=== PATIENT | female | born 2005 | race Caucasian/White ===

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

== ENCOUNTER 2025-01-19 11:15 | Outpatient (RCR) | payer OTHER, SELFPAY | END 2025-03-01 17:25 | disposition home or self-care (01) | PROVIDERS: PCP Family Medicine; Visit Provider Family Medicine | DX: M54.16 Radiculopathy, lumbar region (principal); Z51.89 Encounter for other specified aftercare | CPT/HCPCS: 97032; 97110; 97162 ==

== ENCOUNTER 2025-03-29 17:16 | Emergency (ER) | payer OTHER, SELFPAY ==
--- OUTSIDE RECORDS SUMMARY | 2025-03-29 17:18 | XMS_ITS | Clinical Summary ---
Author Organization [facility] Address [address] [place] [id number] Care Team Providers Care Cable Tool Driller Name Role Phone Elsewhere, Pcp Primary Care Provider Unavailabl e Source Comments Patient records contain information from all sites at [facility]. For routine questions regarding patient records, call [phone] during business hours, M-F 8:00 AM - 5:00 PM Central Time. Record requests for emergency care only can be directed to [phone] at any time.[facility] Allergies No known active allergies Medications No known medications Active Problems No known active problems Social History Tobacco Use Types Packs/Day Years Used Date Smoking Tobacco: Never Passive Smoke Exposure: Never Smokeless Tobacco: Never Tobacco Cessation:Counseling Given: Not Answered Alcohol Use Standard Drinks/Week Comments Not Currently 0 (1 standard drink = 0.6 oz pur e alcohol) Comments No Sex and Gender Information Value Date Recorded Sex Assigned at Not on file Legal Sex Female 2:13 PM CDT Gender Identity Not on file Sexual Orientation Not on file Last Filed Vital Signs Vital Sign Reading Time Taken Comments Blood Pressure 101/63 10/10/2024 2:27 PM CDT Pulse 125 10/10/2024 2:23 PM CDT Temperature 37.6 C (99.7 F) 10/10/2024 4:08 PM CDT Respiratory Rate 18 10/10/2024 4:08 PM CDT Oxygen Saturation 100% 10/10/2024 4:08 PM CDT Inhaled Oxygen Concentration - - Weight 57.6 kg (127 lb) 10/10/2024 2:24 PM CDT Height 154.9 cm (5' 1) 10/10/2024 2:24 PM CDT Body Mass Index 24 10/10/2024 2:24 PM CDT Plan of Treatment Health Maintenance Due Date Last Done Comments Chlamydia and Gonorrhea Screening 2004 HIV Screening 2004 Hearing Screening during Well Child Visit 2004 Hepatitis C Screening 2004 TB Screening during Well Child Visit 2004 1 week Well Child Check-Up 2004 1 month Well Child Check-Up 2004 2 month Well Child Check-Up 01/05/2005 4 month Well Child Check-Up 02/20/2005 9 month Well Child Check-Up 07/23/2005 15 month Well Child Check-Up 01/20/2006 18 month Well Child Check-Up 04/22/2006 2 year Well Child Check-Up 10/20/2006 30 month Well Child Check-Up 04/22/2007 3 year Well Child Check-Up 10/21/2007 Well Child Check-Up Completed in Past Year 10/21/2007 5 year Well Child Check-Up 10/20/2009 6 year Well Child Check-Up 10/20/2010 7 year Well Child Check-Up 10/21/2011 8 year Well Child Check-Up 10/20/2012 10 year Well Child Check-Up 10/20/2014 12 year Well Child Check-Up 10/20/2016 13 year Well Child Check-Up 10/20/2017 14 year Well Child Check-Up 10/20/2018 Vision Screening during Well Child Visit 2018 15 year Well Child Check-Up 10/21/2019 16 year Well Child Check-Up 10/20/2021 18 year Well Child Check-Up 10/20/2022 19 year Well Child Check-Up 10/21/2023 Depression Screening (Annual PHQ-2) 06/23/2024 19 year Well Child Check-Up 10/20/2024 Well Child Check-Up ([facility]) 10/20/2024 COVID-19 Vaccine ( season) 2025 11/10/2020 Influenza Vaccine (#1) 2025 7, 08/20/2005, 05/27/2005 DTaP,Tdap,and Td Vaccines (7 - Td or Tdap) 02/06/2027 02/06/2017, 02/08/2010, 03/17/2006, Additional history exists Hepatitis B Vaccines Completed 05/27/2005, 03/21/2005, 01/16/2005 Pneumococcal vaccine (0-49 years) Aged Out 05/27/2005, 04/04/2005, 03/17/2005, Additional history exists No longer eligible based on patient's age to complete this topic IPV Vaccines Completed 02/08/2010, 10/2004, 03/21/2005, Additional history exists HPV Vaccines Completed 06/28/2021, 02/06/2017 Meningococcal Vaccine Completed 06/28/2021, 017 Anemia/Iron Deficiency Screening During Well Child Visit (if High Risk Menstruating Female) Completed 10/10/2024, 01/03/2022, 07/31/2020, Additional history exists Procedures Procedure Name Priority Date/Time Associated Diagnosis Comments CBC WITH DIFFERENTIAL, B STAT 10/10/2024 4:16 PM CDT Fever Of Unknown Origin Vomiting from Last 3 Months or Most Recently Relevant to Health Maintenance Results * (ABNORMAL) CBC with Differential, Blood (10/10/2024 4:16 PM CDT) Hemoglobin 13.0 11.6 - 15.0 g/dL 10/10/2024 4:22 PM CDT NPRG Hematocrit 37.3 35.5 - 44.9 % 10/10/2024 4:22 PM CDT NPRG Erythrocytes 4.21 3.92 - 5.13 x10(12)/L 10/10/2024 4:22 PM CDT NPRG MCV 88.6 78.2 - 97.9 fL 10/10/2024 4:22 PM CDT NPRG RBC Distrib Width 12.3 12.2 - 16.1 % 10/10/2024 4:22 PM CDT NPRG Platelet Count 239 157 - 371 x10(9)/L 10/10/2024 4:22 PM CDT NPRG Leukocytes 20.8(H) 3.4 - 9.6 x10(9)/L 10/10/2024 4:22 PM CDT NPRG Neutrophils 18.56(H) 1.56 - 6.45 x10(9)/L 10/10/2024 4:22 PM CDT NPRG Lymphocytes 0.69(L) 0.95 - 3.07 x10(9)/L 10/10/2024 4:22 PM CDT NPRG Monocytes 1.55(H) 0.26 - 0.81 x10(9)/L 10/10/2024 4:22 PM CDT NPRG Eosinophils <0.04 0.03 - 0.48 x10(9)/L 10/10/2024 4:22 PM CDT NPRG Basophils <0.04 0.01 - 0.08 x10(9)/L 10/10/2024 4:22 PM CDT NPRG Blood (Blood, Venous) 10/10/2024 4:16 PM CDT 10/10/2024 4:19 PM CDT us Rosa Maira Montalvo APRN, C.N.P. LAB BLOOD ADD-ON Fin al Result [facility] [address] [place] [address], [facility] NPRG [facility] [address] [place] [address] from Last 3 Months or Most Recently Relevant to Health Maintenance Insurance [employer] LILA NICOLE [id number] Care Teams Cable Tool Driller Relationship Specialty Start Date End Date Elsewhere, Pcp PCP - General Internal Medicine 10/10/24
--- OUTSIDE RECORDS SUMMARY | 2025-03-29 17:18 | XMS_ITS | Clinical Summary ---
Author Organization [facility] Address [address] [place] [id number] Care Team Providers Care Beaming Machine Operator Name Role Phone Devi Lucas MD Primary Care Provider [phone] Allergies No known active allergies Medications tiZANidine 4 mg tabletIndication s:Lumbar pain with radiation down right leg TAKE 1 TABLET(4 MG) BY MOUTH EVERY 6 HOURS NEEDED FOR MUSCLE SPASM 30 Tablet 11/24/2024 Active naproxen 500 mg tabletIndication s:Acute bilateral low back pain without sciatica TAKE 1 TABLET(500 MG) BY MOUTH TWICE DAILY WITH MEALS 14 Tablet 11/30/2024 Active Active Problems Problem Noted Date Diagnosed Date Herniated lumbar intervertebral disc 09/26/2022 09/26/2022 Headache syndrome 01/03/2022 Irregular periods 01/03/2022 Encounters Date Type Department Care Team Description 03/29/2025 Nurse Triage [facility] [address] [place] [address] Devi Lucas MD Back Pain from Last 3 Months Immunizations Immunization Administration Dates Next Due COVID-19 vaccine ([facility] NTFamilytic 30mcg/0.3mL) ABILIO NOVOA 11/10/2020 DTaP 03/17/2006 [id number] (Pediarix) 05/27/2005,03/21/2005,0 01/16/2005 DTaP-IPV (Kinrix) 02/08/2010 HIB PRP-OMP (PedvaxHIB) 03/17/2006,03/21/2005, HPV 9 (Gardasil 9) 06/28/2021,02/06/2017 Hepatitis A (Peds) 06/28/2021,02/06/2017 Hepatitis A (Peds),Unspecified 02/06/2017 Human Papilloma Virus Vaccin e, Unspecified 02/06/2017 Influenza, IIV3 (Age 6-35 mos) 06/26/2006,2005,05/27/2005 MENINGOCOCCAL VACCINE 2 VIAL [id number] (MENVEO) 06/28/2021,02/06/2017 MMR 02/08/2010,12/10/2005 MMRV 02/08/2010 Meningococcal Vaccine 02/06/2017 Pneumococcal conj 7-Valent (Prevnar 7) 1 2004,04/04/2005,03/17/2005,01/16 Tdap 02/06/2017 Varicella Vaccine 02/08/2010,12/10/2005 Family History Medical History Relation Name Comments Alcoholism Mother Relation Name Status Comments Mother Social History Tobacco Use Types Packs/Day Years Used Date Smoking Tobacco: Never Smokeless Tobacco: Never Tobacco Cessation:Counseling Given: Yes Comments:No exposure Alcohol Use Standard Drinks/Week Comments No 0 (1 standard drink = 0.6 oz pur e alcohol) PHQ-2 Answer Date Recorded PHQ-2 TOTAL SCORE 1 11/22/2024 Social Connections Answer Date Recorded Do you often feel lonely or isolated from those around you? 0 11/22/2024 Financial Resource Strain Answer Date R ecorded Difficulty of Paying Living Expenses 3 11/22/2024 Difficulty of Paying Living Expenses Not on file 11/22/2024 Food Insecurity Answer Date Recorded Do you worry your food will run out before you are able to buy more? 1 11/22/2024 Transportation Needs Answer Date Record ed Does lack of transportation keep you from medica l appointments? 1 11/22/2024 Does lack of transportation keep you from work, meetings or getting things that you need? 1 11/22/2024 Housing Stability Answer Date Recorded What is your housing situation today? 1 11/22/2024 Utilities Answer Date Recorded Do you have trouble paying f or utilities (for example, heat, electricity, water, phone)? 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 Gender Identity Not on file Sexual Orientation Not on file Obstetrics History Para Term AB IAB SAB Ectopic Multiple Livin g Live Births 0 0 0 0 0 0 0 0 0 0 0 Last Filed Vital Signs Vital Sign Reading Time Taken Comments Blood Pressure 109/77 11/22/2024 11:08 AM CDT Pulse 104 11/22/2024 11:08 AM CDT Temperature 37.1 C (98.7 F) 01/18/2019 2:40 PM CDT Respiratory Rate 20 11/07/2010 2:19 PM CDT Oxygen Saturation 98% 11/22/2024 11:08 AM CDT Inhaled Oxygen Concentration - - Weight 57.6 kg (127 lb) 11/22/2024 11:08 AM CDT Height 155.7 cm (5' 1.3) 09/26/2022 2:51 PM CDT Body Mass Index - - Plan of Treatment Health Maintenance Due Date Last Done Comments HIV for age 15-65 11/21/2019 BMI (ht and wt on same day) for age 18+ 2022 Hepatitis C screening for age 18-79 2022 Well Child Check for age 3-20 09/27/2023 09/26/2022, 06/28/2021, 02/06/2017, Additional history exists COVID-19 vaccine series (2024- season) 2025 12/05/2020, 11/10/2020 Influenza Vaccine (#1) 2025 7, 08/20/2005, 05/27/2005 Depression screening for age 12+ 11/22/2025 11/22/2024, 11/03/2023, 09/26/2022, Additional history exists Tetanus booster 02/06/2027 02/06/2017 RSV vaccine for adults or (1 - 1-dose 75+ series) 11/21/2079 Hepatitis B series for 19+ Completed 05/27, 03/21/2005, 01/16/2005 Pneumococcal series for age 6-49 Aged Out 05/27/2005, 04/04/2005, 03/17/2005, Additional history exists No longer eligible based on patient's age to complete this topic HPV series for age 9-45 Completed 06/28/19, 02/06/2017, 02/06/2017 Meningococcal series for age 11-21 Completed 06/28/2021, 02/06/2017 Insurance [employer] [place] [id number] [employer] [id number] Care Teams Beaming Machine Operator Relationship Specialty Start Date End Date Devi Lucas MD [address] [place] [id number] PCP - General Family Practice 09/26/22
[2025-03-29 17:38] VITALS: BP 111/70; PULSE 75; RESP 16; TEMP 37; O2SAT 98; BMI 25.1
--- NOTE | 2025-03-29 17:45 | ED_ITS ---
HPI - Back Pain/Injury General Time Seen by Provider: 17:45 Date Seen: 03/29/25 Chief Complaint: Back Injury/Pain Stated Complaint: Lower back/R leg pain Time Seen by Provider: 03/29/25 17:21 Source: patient and RN notes reviewed Mode of arrival: ambulatory Limitations: no limitations History of Present Illness HPI Narrative: This 19-year-old female is coming into the ER with concern of low back pain. She started with low back pain on Friday, about 2 days ago. She had went to the gym and then worked afterwards. Back just started hurting. She cannot think of anything specifically she did. She has a history of herniated disc after falling on the ice 2 years ago. She typically will have right radiculopathy, today she has noted some pain into the left anterior thigh as well. She has had no loss of bowel or bladder control, no perineal anesthesia or numbness tingling, no numbness tingling in her legs. She is able to walk, she stated once when she stood she felt like her legs felt a little rubbery but she has been able to walk without difficulty outside of that. No fevers or chills, nonsmoker. She states there is absolutely no chance for , not sexually active. She has done physical therapy in the past. MD elicited complaint: back pain Related Data Previous Rx's ?Medication ?Instructions ?Recorded cyclobenzaprine 10 mg tablet 10 mg PO TID PRN muscle s pasm #15 03/29/25 tabs prednisone 20 mg tablet 20 mg PO BID #10 tabs Allergies Allergy/AdvReac Type Severity Reaction Status Date / Time No Known Drug Allergies Allergy Verified 03/30/22 10:08 Review of Systems Narrative: As per HPI. PFSH [facility] Social History Smoking Status: Never smoker Do you use any of these nicotine containing products: None Second hand tobacco smoke exposure: No How often do you have a drink containing alcohol: never How often do you have six or more drinks on one occasion: Never AUDIT-C Alcohol total score: 0 Non-prescribed substance use: denies use Exam Const: Vital Signs, click to edit/add: Vital Signs - 24 hr 03/29/25 17:38 Temperature 98.6 F Pulse Rate [Pulse Oximeter] 75 Respiratory Rate 16 Blood Pressure [Ri ght Upper Arm] 111/70 Pulse Oximetry 98 Oxygen Delivery Me thod Room Air This 19-year-old female is alert, interactive, no apparent distress. Sitting in the bed in exam room 2. No noted midline tenderness. She has positive straight leg raise on the right even at about 45?. Her strength is 5 5 and symmetric throughout the hips, knees, ankles and feet. She has normal sensation of her lower extremities, normal perineal sensation. DTRs are 1 to 2+ at patellas and symmetric, could not get Achilles on either side. No lower extremity edema. Documenting provider has reviewed patient's vital signs: yes Course Course ED Course: Patient was concerned about the pain going into the left leg, has not had pain in both sides. The pain on the left leg has somewhat subsided for her now. She has no evidence clinically of cauda equina. We discussed signs and symptoms of that, she know she needs to watch for any bowel or bladder issues, weakness in her extremities, either side or both together, any perineal sensory changes. At this time I do not think emergent neuro imaging is necessary but it is patricio canales time to consider reimaging her back outpatient, she is to follow up with her primary care provider. We discussed relative rest, she remembers some of her back exercises from physical therapy and can restart these as long as it is not increasing her pain. We discussed management, will do course of steroids, muscle relaxant. She typically will use Aleve over ibuprofen and reviewed with her that is fine. Will have her take baseline Tylenol. Will give her some restrictions at work for the next week or so until she can get back in to see her provider. If she has any red flag symptoms as we reviewed, she is to seek emergent re-evaluation. Vital Signs Vital signs: Initial Vital Signs Temperature 98.6 F 03/29/25 17:38 Temperature Source Temporal Artery Scan 03/29/25 17:38 Pulse Rate 75 03/29/25 17:38 Respiratory Rate 16 03/29/25 17:38 Blood Pressure 111/70 03/29/25 17:38 Blood Pressure Mean 83 03/29/25 17:38 Blood Pressure Position Sitting 03/29/25 17:38 Pulse Oximetry 98 03/29/25 17:38 Oxygen Delivery Method Room Air 03/29/25 17:38 Vital Signs Temperature 98.6 F 03/29/25 17:38 Pulse Rate 75 03/29/25 17:38 Respiratory Rate 16 03/29/25 17:38 Blood Pressure 111/70 03/29/25 17:38 Pulse Oximetry 98 03/29/25 17:38 Oxygen Delivery Method Room Air 03/29/25 17:38 Temperature 98.6 F 03/29/25 17:38 Pulse Rate 75 03/29/25 17:38 Respiratory Rate 16 03/29/25 17:38 Blood Pressure 111/70 03/29/25 17:38 Pulse Oximetry 98 03/29/25 17:38 Oxygen Delivery Method Room Air 03/29/25 17:38 Discharge Plan Discharge Clinical Impression: Lumbar radiculopathy Patient Disposition: Home, Self-Care Condition: Stable Instructions: Acute Low Back Pain (ED), Lumbar Radiculopathy (ED) Additional Instructions: Start prednisone and take as prescribed, recommend taking with food to protect your stomach. Have written for flexor all as a muscle relaxant, can use to help with pain. Take Tylenol 1000 mg 3 times a day baseline for pain, can decrease as you feel better. Can use Aleve per bottle directions for extra pain management. Do request that you contact her clinic to get scheduled for a follow-up, recommend recheck within 1 week. They can consider physical therapy referral again, consider MRI imaging of your lumbar spine. If you note that you start to get perineal numbness or tingling, loss of bowel or bladder, any motor weakness in either of your lower extremities, do recommend re-evaluation in the interim. Activity Level: Activity as Tolerated Prescriptions: New prednisone 20 mg tablet 20 mg PO BID Qty: 10 0RF cyclobenzaprine 10 mg tablet 10 mg PO TID PRN (Reason: muscle spasm) Qty: 15 0RF Follow Up/Referrals: Yari Carr MD [Primary Care Provider, Family Practice] Stand Alone Forms: Work/School Release, [employer] Info Instructions
== END 2025-03-29 18:11 | disposition home or self-care (01) ==
LOC: ED 18:09
PROVIDERS: Emergency Provider Family Medicine; PCP Family Medicine
DX: M54.16 Radiculopathy, lumbar region (principal)
CPT/HCPCS: 99283